=== PATIENT | male | born 2000 | race African-American/Black ===

== ENCOUNTER 2021-07-14 11:27 | Emergency (ER) | payer SELFPAY ==
--- NOTE | ~2021-07-14 | XR_ITS ---
EXAMINATION: XR chest 2V EXAM DATE: 07/14/2021 12:07 INDICATION: Chest pain. TECHNIQUE: Frontal and lateral projections of the chest obtained and reviewed. There is no prior ann dy for comparison. FINDINGS: The lungs are clear. There are no pleural effusions. The cardiomediastinal silhouette is within normal limits. There is no pneumothorax suspected. The bones and soft tissues are unremarkab le. IMPRESSION: No acute cardiopulmonary findings. Reviewed, dictated and finalized at location B.
--- NOTE | 2021-07-14 11:29 | ECG_ITS ---
Measurements Intervals [place] Rate: 66 P: 18 ME: 167 QRS: 40 QRSD: 84 T: 29 QT: 351 QTc: 368 Interpretive Statements SINUS RHYTHM MINIMAL Q WAVES- INFERIOR LEADS BORDERLINE ECG Electronically Signed On 07-14-2021 11:36:12 CDT by Steven Bray D.O.
[2021-07-14 11:33] VITALS: BP 146/92; PULSE 72; RESP 16; O2SAT 100
[2021-07-14 11:55] LABS: Basophils Absolute Auto 0.1 K/mm3 (0.0-0.1); Basophils Percent Auto 0.9 % (0.2-1.2); Eosinophils Absolute Auto 0.1 K/mm3 (0-0.3); Eosinophils Percent Auto 1.7 % (0-4.4); Hematocrit 44.9 % (42.0-52.0); Hemoglobin 15.1 g/dL (14.0-18.0); Immature Granulocyte Absolute 0.01 K/mm3 (0.00-0.031); Immature Granulocyte Percent A 0.2 % (0-0.5); Lymphocytes Absolute Auto 2.52 K/mm3 (0.9-3.2); Lymphocytes Percent Auto 46.5 % (18.3-44.2); Mean Corpuscular HGB Conc 33.6 g/dl (32-36); Mean Corpuscular Hemoglobin 30.3 pg (26-34); Mean Corpuscular Volume 90.2 fl (80-100); Mean Platelet Volume 9.2 fl (7.4-10.4); Monocytes Absolute Auto 0.3 K/mm3 (0.1-0.6); Monocytes Percent Auto 6.3 % (2.6-8.5); Neutrophils Absolute Auto 2.4 K/mm3 (1.3-6.7); Neutrophils Percent Auto 44.4 % (45.5-73.1); Platelet Count Result 279 k/mm3 (150-375); Red Blood Count 4.98 M/mm3 (4.6-6.20); Red Cell Distribution Width 13.2 % (11.5-14.5); White Blood Count 5.4 K/mm3 (4.5-10.0)
[2021-07-14 12:06] LABS: Anion Gap 11 mmol/L (8-16); Blood Urea Nitrogen 11 mg/dL (9-20); Calcium 10.2 mg/dL (8.4-10.2); Carbon Dioxide 29 mmol/L (22-30); Chloride 102 mmol/L (98-107); Estimated CRCL calculation 127 ml/min; Estimated Glomerular Filt Rate > 60; Glucose 85 mg/dL (65-110); Potassium 4.2 mmol/L (3.4-5.0); Sodium 142 mmol/L (137-145)
[2021-07-14 12:07] LABS: INR 0.9
[2021-07-14 12:08] LABS: Partial Thromboplastin Time 30.9 SECONDS (22.3-36.8)
[2021-07-14 12:17] LABS: Troponin I < 0.012 ng/mL (0.000-0.034)
[2021-07-14 13:09] VITALS: BP 147/96; PULSE 77; RESP 14; TEMP 36.8; O2SAT 100
[2021-07-14 13:26] VITALS: BP 147/96; PULSE 79; RESP 22; O2SAT 100
[2021-07-14 13:27] VITALS: PULSE 76
--- NOTE | 2021-07-14 13:44 | ED.CHESTPAIN ---
HPI - Chest Pain General Chief Complaint: Chest Pain Stated Complaint: CP Time Seen by Provider: 07/14/21 13:20 History of Present Illness HPI narrative: Patient presents with chest pain for approximately 1 week. Patient first noticed pain when he was at work and lifting a heavy box. Ever since then he is having intermittent chest pain primarily on the right today it was radiating to the left he was concerned so wanted to come to the ER for evaluation. Symptoms appear to worsen at work when he is attempting to do heavy lifting. Denies any associated shortness of breath lightheadedness nausea vomiting or diaphoresis. Denies recent hospitalizations or surgeries prior history of DVT or PE. Denies significant family history of cardiac disease Related Data Home Medications Medication Instructions Recorded Confirmed No Home Medications 11/09/19 11/09/19 Allergies Allergy/AdvReac Type Severity Reaction Status Date / Time No Known Allergies Allergy Unverified 07/14/21 13:05 Review of Systems Review of Systems: CONSTITUTIONAL: Denies fever, chills, or sweats. EYES: Denies visual changes, redness, or discharge. ENT: Denies rhinorrhea, congestion, sore throat, or otalgia. CARDIOVASCULAR: Denies palpitations, or edema. RESPIRATORY: Denies cough or dyspnea. GASTROINTESTINAL: Denies abdominal pain, nausea, vomiting, or diarrhea. GENITOURINARY: Denies dysuria or hematuria. SKIN: Denies rash or itching. MUSCULOSKELETAL: Denies back pain, joint pain, or myalgia. NEUROLOGIC: Denies headache, numbness, dizziness, or weakness. PSYCHIATRIC: Denies anxiety or depression. All systems reviewed & are unremarkable except as noted in HPI and below PMFSH Social History Social History Gender identity (if verbalized by the patient): Male Exam Narrative: GENERAL: Well-appearing, well-nourished, and in no acute distress. HEAD: Normocephalic, atraumatic. EYES: PERRLA and EOMI. ENT: Nares clear, no rhinorrhea or epistaxis. Mucous membranes moist. NECK: Supple. No masses. No JVD CHEST: Clear to auscultation. No respiratory distress. No wheezes rales or rhonchi mild chest pain with palpation HEART: Regular rate and rhythm. No murmur heard. Normal peripheral pulses. ABDOMEN: Soft, nontender, nondistended, normal active bowel sounds. EXTREMITIES: Normal range of motion. No edema. SKIN: Warm, dry, no rash. NEURO: No focal deficits. Alert and oriented x3. PSYCH: Normal mood and affect. Course Reevaluation(s) Reevaluation #1: Patient resting comfortably labs imaging EKG reviewed with patient. Patient comfortable with outpatient plan. Date: 07/14/21 Time: 13:48 Vital Signs Vital signs: Vital Signs Pulse Rate 72 07/14/21 11:33 Respiratory Rate 16 07/14/21 11:33 Blood Pressure 146/92 H 07/14/21 11:33 Pulse Oximetry 100 07/14/21 11:33 Temperature 36.8 C 07/14/21 13:09 Pulse Rate 76 07/14/21 14:10 Respiratory Rate 18 07/14/21 14:10 Blood Pressure 135/87 07/14/21 14:10 Pulse Oximetry 100 07/14/21 14:10 MDM - Chest Pain MDM Narrative Medical decision making narrative: H&P as above, vss, pt looks clinically well, exam with reproducible pain, labs unremarkable including troponin with 1 week worth of symptoms, img unremarkable, additional labs/img considered, symptomatic relief available as needed, on reevaluation pt continues to looks clinically well. Suspect chest wall pain possibly costochondritis versus muscle strain, low clinical concern for ACS, PE, dissection, pneumonia, pneumothorax. plan to tx/monitor as op w/ pcm f/u findings/plan discussed with pt, pt agree/comfortable with plan, return precautions given Lab Data Result diagrams: 07/14/21 11:44 07/14/21 11:44 Labs: Lab Results 07/14/21 07/14/21 07/14/21 Range/Units 11:44 11:44 11:44 WBC 5.4 (4.5-10.0) K/mm3 RBC 4.98 (4.6-6.20) M/mm3 Hgb 15.1 (14.0-18
[2021-07-14 14:10] VITALS: BP 135/87; PULSE 76; RESP 18; O2SAT 100
== END 2021-07-14 14:12 | disposition home or self-care (01) ==
PROVIDERS: Emergency Provider Emergency Medicine
DX: R07.9 Chest pain, unspecified (principal); R94.31 Abnormal electrocardiogram [ECG] [EKG]
CPT/HCPCS: 36415; 71046; 80048; 84484; 85025; 85610; 85730; 93005; 99284